=== PATIENT | female | born 1995 | race Caucasian/White ===

== ENCOUNTER → 2017-01-14 | Outpatient (CLI) | payer BC ==
[2017-01-17 00:38] LABS: CHLAMYDIA TRACH RNA*** NOT DETECTED (NOT DETECTED); GC (NEIS GONORRHOEAE)RNA** NOT DETECTED (NOT DETECTED)
== END | disposition home or self-care (01) ==
LOC: C.LABSPEC 16:27
PROVIDERS: ATTEND Physician Assistant
DX: Z01.419 Encounter for gynecological examination (general) (routine) without abnormal findings (principal)

== ENCOUNTER → 2017-01-14 | Outpatient (CLI) | payer BC | END | disposition home or self-care (01) | LOC: C.PAPS 16:21 | PROVIDERS: ATTEND Physician Assistant | DX: Z01.419 Encounter for gynecological examination (general) (routine) without abnormal findings (principal) ==

== ENCOUNTER 2017-07-19 23:50 | Emergency (ER) | payer BC ==
[~2017-07-19] VITALS: Ht 162.6 cm; Wt 73.9 kg
[2017-07-19 23:57] VITALS: TEMP 36.8; Ht 162.6 cm; Wt 73.9 kg
[2017-07-19] MEDS ORDERED: ONDANSETRON INJ 2 MG/ML 2 ML VIAL IV STA (23:59)
[2017-07-20 00:01] VITALS: O2SAT 98
--- NOTE | 2017-07-20 00:09 | EMERGENCY ROOM VISIT NOTE ---
History Report prepared by Tan: Patricia Torres Under the Supervision of: Dr. Debra Alejandro D.O. 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 Per EMS, the patient reports she was sitting in a 3 foot tall stool and fell backwards. The patient reports she does not remember falling but does not think she hit her head. She began drinking alcohol at 1300 today. HPI limited due to alcohol intoxication. Pt denies headache, change in vision, fevers, chest pain, shortness of breath, neck pain, back pain, nausea, vomiting, diarrhea, pain with urination, and melena. 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 ROS limited due to alcohol intoxication. Family History Patient reports no known family medical history. Social History Smoking Status: Unknown if Ever Smoked Smokeless Tobacco Use: Unknown Alcohol Use: occasionally Marital Status: in relationship Occupation Status: [employer] student Current/Historical Medications No Active Prescriptions or Reported Meds Allergies Coded Allergies: Penicillins (Verified Allergy, Intermediate, HIVES, 07/20/17) Physical Exam Vital Signs Date Time Temp Pulse Resp B/P (MAP) Pulse Ox O2 Delivery O2 Flow Rate FiO2 07/20/17 03:17 108 14 107/62 96 07/20/17 01:34 73 18 109/80 99 Room Air 07/20/17 00:24 80 18 137/81 96 Room Air 07/20/17 00:01 98 Room Air 07/19/17 23:57 36.8 99 18 137/87 98 Room Air Physical Exam GENERAL: alert, appears intoxicated, well nourished, no distress, non-toxic. Smells of EtOH. Head: Normal cephalic, atraumatic. EYE EXAM: normal conjunctiva, PERRL and EOM's grossly intact OROPHARYNX: no exudate, no erythema, lips, buccal mucosa, and tongue normal and mucous membranes are moist NECK: supple, no nuchal rigidity, no adenopathy, non-tender LUNGS: Clear to auscultation. Normal chest wall mechanics HEART: no murmurs, S1 normal and S2 normal ABDOMEN: abdomen soft, non-tender, normo-active bowel sounds, no masses, no rebound or guarding. BACK: Back is symmetrical on inspection and there is no deformity, no midline tenderness, no CVA tenderness. SKIN: no rashes and no bruising UPPER EXTREMITIES: upper extremities are grossly normal. LOWER EXTREMITIES: No pitting edema. NEURO EXAM: Normal sensorium, cranial nerves II-XII grossly intact, normal speech, no gross weakness of arms, no gross weakness of legs. No drift. Finger to nose intact. Gross sensation intact. Medical Decision & Procedures ER Provider Diagnostic Interpretation: Radiology results have been interpreted by the radiologist and reviewed by me. C-SPINE No acute fracture or subluxation. CT SCAN OF THE BRAIN WITHOUT IV CONTRAST CLINICAL HISTORY: Head injury. Intoxication. Vomiting. COMPARISON STUDY: No priors. TECHNIQUE: Unenhanced axial CT scan of the brain is performed from the vertex to the skull base. A dose lowering technique was utilized adhering to the principles of ALARA. CT DOSE: 537.48 mGy.cm FINDINGS: Brain parenchyma: The brain parenchyma is normal in appearance. There is no hemorrhage, mass effect, or evidence of acute territorial ischemia by CT criteria. Reyes-white matter is preserved. No extra-axial fluid collection is seen. Ventricles, sulci, cisterns: Normal in configuration. Intracranial vasculature: The visualized intracranial vasculature at the skull base is normal in appearance. Calvarium: There is no depressed calvarial fracture. Sinuses and mastoids: The visualized paranasal sinuses are clear. The mastoid air cells are well pneumatized. Orbits: The bony orbits are grossly intact. IMPRESSION: No acute intracranial abnormality. Electronically signed by: Conor Harirs M.D. 07/20/2017 12:49 AM Dictated Date/Time: 07/20/2017 12:47 AM Laboratory Results 07/20/17 00:17 Test 07/20/17 00:17 07/20/17 00:48 Anion Gap 11.0 mmol/L (3-11) Est Creatinine Clear Calc Drug Dose 106.0 ml/min Estimated GFR () 117.7 Estimated GFR (Non- 101.6 BUN/Creatinine Ratio 10.0 (10-20) Calcium Level 8.3 mg/dl (8.5-10.1) Human Chorionic Gonadotropin, Qual NEG (NEG) Ethyl Alcohol mg/dL 277.0 mg/dl (0-3) Laboratory results per my review. Medications Administered Medications (Trade) Dose Ordered Sig/Jose Carlos Route Start Time Stop Time Status Last Admin Dose Admin Ondansetron HCl (Zofran Inj) 4 mg NOW STAT IV 07/19/17 23:59 07/20/17 00:01 DC 07/20/17 00:21 4 MG ED Course 2352: The patient was evaluated in room B3. A complete history and physical exam was performed. 2359: Zofran Inj 4 mg IV 0111: I rechecked the patient at this time. She appeared slightly better and less intoxicated. 0237: Upon reevaluation, the patient is feeling better. I discussed the findings and the treatment plan with the patient. She verbalizes agreement and understanding. She was discharged home. Medical Decision Differential diagnosis: Etiologies such as alcohol intoxication, toxicologic, infection, hypoglycemia, electrolyte abnormalities, cardiac sources, intracerebral event, neurologic, as well as others were entertained. Patient improved here, able tolerate by mouth, and related with a steady gait, and more clinically sober at the time of discharge. Patient's significant other was with her throughout her stay, and is sober at this time. Intend to take to Uber back to their apartments. I have a low suspicion for any additional occult traumatic injury. Doubt other acute GI pathology for patient' s vomiting. Most likely vomiting related to alcohol intoxication. Patient cautioned on responsible use of alcohol, head injuries, concussion, symptoms to watch and return for, she verbalized understanding was agreeable with plan. Medication Reconcilliation Current Medication List: was personally reviewed by me Blood Pressure Screening Patient's blood pressure: Normal blood pressure Blood pressure disposition: Did not require urgent referral Impression Primary Impression: Alcohol intoxication Additional Impressions: Fall Closed head injury Scribe Attestation The scribe's documentation has been prepared under my direction and personally reviewed by me in its entirety. I confirm that the note above accurately reflects all work, treatment, procedures, and medical decision making performed by me. Departure Information Dispostion Home / Self-Care Prescriptions No Active Prescriptions or Reported Meds Referrals No Doctor, Assigned (PCP) Patient Instructions [facility] Additional Instructions Please rest and drink plenty of fluids to stay well-hydrated. Please avoid any strenuous activity or heavy lifting until you're feeling better. If you have any worsening or persistent headaches, develop dizziness, vision changes, recurrent vomiting, numbness or tingling, fevers, neck or back pain, or you have any other new concerns, please return the emergency room. Please drink responsibly and a safe location. Do not drink and drive. Problem Qualifiers Primary Impression: Alcohol intoxication Complication of substance-induced condition: uncomplicated Qualified Codes: F10.920 - Alcohol use, unspecified with intoxication, uncomplicated Additional Impressions: Fall Encounter type: initial encounter Qualified Codes: W19.XXXA - Unspecified fall, initial encounter Closed head injury Encounter type: initial encounter Qualified Codes: S09.90XA - Unspecified injury of head, initial encounter
[2017-07-20 00:47] LABS: CALCIUM 8.3 mg/dl (8.5-10.1); CREATININE 0.82 mg/dl (0.60-1.20); POTASSIUM 3.4 mmol/L (3.5-5.1)
--- NOTE | 2017-07-20 00:50 | DIAGNOSTIC IMAGING REPORT ---
CT SCAN OF THE BRAIN WITHOUT IV CONTRAST CLINICAL HISTORY: Head injury. Intoxication. Vomiting. COMPARISON STUDY: No priors. TECHNIQUE: Unenhanced axial CT scan of the brain is performed from the vertex to the skull base. A dose lowering technique was utilized adhering to the principles of ALARA. CT DOSE: 537.48 mGy.cm FINDINGS: Brain parenchyma: The brain parenchyma is normal in appearance. There is no hemorrhage, mass effect, or evidence of acute territorial ischemia by CT criteria. Reyes-white matter is preserved. No extra-axial fluid collection is seen. Ventricles, sulci, cisterns: Normal in configuration. Intracranial vasculature: The visualized intracranial vasculature at the skull base is normal in appearance. Calvarium: There is no depressed calvarial fracture. Sinuses and mastoids: The visualized paranasal sinuses are clear. The mastoid air cells are well pneumatized. Orbits: The bony orbits are grossly intact. IMPRESSION: No acute intracranial abnormality. Electronically signed by: Conor Harris M.D. 07/20/2017 12:49 AM Dictated Date/Time: 07/20/2017 12:47 AM
[2017-07-20 03:17] VITALS: BP 107/62; PULSE 108; O2SAT 96
--- NOTE | 2017-07-20 06:16 | DIAGNOSTIC IMAGING REPORT ---
C-SPINE ROUTINE 4 OR 5 VIEWS CLINICAL HISTORY: Neck pain status post trauma COMPARISON STUDY: No previous studies for comparison. FINDINGS: There is limited visualization of the lower cervical vertebral bodies on the lateral view. No fractures or subluxations are visualized on the provided images. IMPRESSION: Technically limited study with limited visualization of the C5, C6, and C7 vertebral bodies. No fractures identified. Electronically signed by: Gurpreet Verdugo M.D. 07/20/2017 6:15 AM Dictated Date/Time: 07/20/2017 6:14 AM
== END 2017-07-20 03:17 | disposition home or self-care (01) ==
LOC: EDBD 23:50 → C.EDB 23:52
DX: F10.920 Alcohol use, unspecified with intoxication, uncomplicated (principal); S09.90XA Unspecified injury of head, initial encounter; W19.XXXA Unspecified fall, initial encounter; Y90.8 Blood alcohol level of 240 mg/100 ml or more